=== PATIENT | female | born 1970 | race Caucasian/White ===

== ENCOUNTER → 2023-11-07 06:29 | Day surgery (SDC) | payer BC, SELFPAY | LOC: GI 06:29 | PROVIDERS: ATTENDING PHYSICIAN Internal Medicine; FAMILY PHYSICIAN Family Medicine | DX: Z12.11 Encounter for screening for malignant neoplasm of colon (principal); D12.5 Benign neoplasm of sigmoid colon; K63.5 Polyp of colon | CPT/HCPCS: 45385; 45380; 88305 ==

== ENCOUNTER → 2023-12-01 08:05 | Outpatient (REF) | payer BC, SELFPAY | LOC: RAD 08:05 | PROVIDERS: ATTENDING PHYSICIAN Specialist; FAMILY PHYSICIAN Family Medicine | DX: M16.11 Unilateral primary osteoarthritis, right hip (principal) | CPT/HCPCS: 73502 ==

== ENCOUNTER → 2024-09-27 19:10 | Outpatient (REF) | payer BC, SELFPAY | LOC: WDC 19:10 | PROVIDERS: ATTENDING PHYSICIAN Family Medicine | DX: Z12.31 Encounter for screening mammogram for malignant neoplasm of breast (principal) | CPT/HCPCS: 77063; 77067 ==

== ENCOUNTER 2025-07-12 09:23 | Emergency (ER) | payer BC, SELFPAY ==
[2025-07-12 09:27] VITALS: BP 186/101
--- NOTE | 2025-07-12 11:28 | ED.GENMED ---
History of Present Illness
<Jannette Ibarra MD, Resident - Last Filed: 07/12/25 15:04>
General
Chief Complaint: Fall
Source: patient and family
Time Seen by Provider: 07/12/25 10:34
History of Present Illness
History of Present Illness:
Patient is a 55-year-old female, with past medical history of cervical stenosis, insomnia who is here for evaluation after a fall.
She was [place] dogs [place] the railroad tracks, when she slipped and fell down hill, she tried to grab a tree branch but she could not maintain balance and ultimately hit a log, causing her head to bump but she did not lose consciousness. She
is not on any blood thinners or any antidiabetic medications. She does not know when were her last tetanus shot. She had pain and limited range of motion of her left shoulder, her left ankle hurts on attempting plantarflexion, she also incurred
injuries to her knees with deep lacerations and has swelling on her forehead. She does report some numbness and tingling down the left arm.
She denies any bleeding through ear nose or throat.
She also needs a work note as well as she is an IMU nurse in [employer]
Past History
<Jannette Ibarra MD, Resident - Last Filed: 07/12/25 15:04>
Past History
ED Past Medical History: Other (History of spinal stenosis)
ED Past Surgical History: Other (Lumbar fusion, C5-C7 disc and fusion, ectopic /lateral salpingectomy, laparoscopic ovarian cyst excision)
Social History
Tobacco: Non-smoker
Alcohol: Occasional
Drug: None
Personal:
Living: with family
Employment: Employed (IMU nurse in [employer])
Review of Systems
<Jannette Ibarra MD, Resident - Last Filed: 07/12/25 15:04>
Review of Systems
All Other Systems: ROS reviewed and negative except as documented in HPI and ROS
Phy Exam
<Jannette Ibarra MD, Resident - Last Filed: 07/12/25 15:04>
General Physical Exam
General Presentation: mild distress (Due to pain)
Cardiovascular Exam
Cardiovascular Exam: regular rate/rhythm, no edema, no gallop, no murmur and normal peripheral pulses
Pulmonary Exam
Pulmonary Exam: lungs clear and no respiratory distress
Gastrointestinal Exam
Gastrointestinal Exam: normal bowel sounds, non tender and soft
Neurological Exam
Neurological Exam: alert, oriented x3, no motor deficits and no sensory deficits
Musculoskeletal Exam
Musculoskeletal Exam: other (Bilateral knee lacerations, limited range of motion of left shoulder due to pain, difficulty in plantarflexion of left ankle due to pain, bump on forehead)
Psychiatric Exam
Psychiatric Exam: normal mood/affect
Course
<Jannette Ibarra MD, Resident - Last Filed: 07/12/25 15:04>
Orders/Labs/Results
Orders:
Orders
07/12/25 09:31
CT Head W/o Iv Contrast Urgent
Comment:
Reason For Exam: +head strike, fall, dizzy
07/12/25 10:58
HYDROmorphone [Dilaudid] 1 mg IV NOW STA
Ketorolac [Toradol] 30 mg IV NOW STA
07/12/25 10:59
CT Cervical Spine W/o Iv Contr Urgent
Comment:
Reason For Exam: fall
Tetanus/Diphth/Acelpertussis [Adacel] 0.5 ml IM .ONCE ONE
Knee, Left 1 or 2 Views [CR Knee - Left 1 Or 2 Views] Urgent
Comment:
Reason For Exam: fall
Knee, Right 1 or 2 Views [CR Knee - Right 1 Or 2 Views] Urgent
Comment:
Reason For Exam: fall
Shoulder, Left, Trauma CR [CR Shoulder, Trauma - Left] Urgent
Comment:
Reason For Exam: fall
07/12/25 11:00
Ankle, left 3 view CR [CR Ankle - Left Min 3 Views ] Urgent
Comment:
Reason For Exam: fall
07/12/25 11:37
Ankle, Right 3 view CR [CR Ankle - Right Min 3 Views *] Urgent
Comment:
Reason For Exam: pain
07/12/25 13:02
Knee Immobilizer Left-Treatmen ONCE
Vital Signs
Initial and Last Documented VS:
Initial Vital Signs
Temp Pulse Resp BP Pulse Ox
98.2 F 69 18 186/101 99
07/12/25 09:27 07/12/25 09:27 07/12/25 09:27 07/12/25 09:27 07/12/25 09:27
Last Documented Vital Signs
Temp Pulse Resp BP Pulse Ox
98.2 F 75 16 170/80 100
07/12/25 09:27 07/12/25 14:37 07/12/25 14:37 07/12/25 14:37 07/12/25 14:37
<Michael Worrell, DO - Last Filed: 07/12/25 11:48>
Orders/Labs/Results
Orders:
Orders
07/12/25 09:31
CT Head W/o Iv Contrast Urgent
Comment:
Reason For Exam: +head strike, fall, dizzy
07/12/25 10:58
HYDROmorphone [Dilaudid] 1 mg IV NOW STA
Ketorolac [Toradol] 30 mg IV NOW STA
07/12/25 10:59
CT Cervical Spine W/o Iv Contr Urgent
Comment:
Reason For Exam: fall
Tetanus/Diphth/Acelpertussis [Adacel] 0.5 ml IM .ONCE ONE
Knee, Left 1 or 2 Views [CR Knee - Left 1 Or 2 Views] Urgent
Comment:
Reason For Exam: fall
Knee, Right 1 or 2 Views [CR Knee - Right 1 Or 2 Views] Urgent
Comment:
Reason For Exam: fall
Shoulder, Left, Trauma CR [CR Shoulder, Trauma - Left] Urgent
Comment:
Reason For Exam: fall
07/12/25 11:00
Ankle, left 3 view CR [CR Ankle - Left Min 3 Views ] Urgent
Comment:
Reason For Exam: fall
07/12/25 11:37
Ankle, Right 3 view CR [CR Ankle - Right Min 3 Views *] Urgent
Comment:
Reason For Exam: pain
07/12/25 13:02
Knee Immobilizer Left-Treatmen ONCE
Vital Signs
Initial and Last Documented VS:
Initial Vital Signs
Temp Pulse Resp BP Pulse Ox
98.2 F 69 18 186/101 99
07/12/25 09:27 07/12/25 09:27 07/12/25 09:27 07/12/25 09:27 07/12/25 09:27
Last Documented Vital Signs
Temp Pulse Resp BP Pulse Ox
98.2 F 75 16 170/80 100
07/12/25 09:27 07/12/25 14:37 07/12/25 14:37 07/12/25 14:37 07/12/25 14:37
<Shiraz Torres PA-C - Last Filed: 07/13/25 17:55>
Orders/Labs/Results
Orders:
Orders
07/12/25 09:31
CT Head W/o Iv Contrast Urgent
Comment:
Reason For Exam: +head strike, fall, dizzy
07/12/25 10:58
HYDROmorphone [Dilaudid] 1 mg IV NOW STA
Ketorolac [Toradol] 30 mg IV NOW STA
07/12/25 10:59
CT Cervical Spine W/o Iv Contr Urgent
Comment:
Reason For Exam: fall
Tetanus/Diphth/Acelpertussis [Adacel] 0.5 ml IM .ONCE ONE
Knee, Left 1 or 2 Views [CR Knee - Left 1 Or 2 Views] Urgent
Comment:
Reason For Exam: fall
Knee, Right 1 or 2 Views [CR Knee - Right 1 Or 2 Views] Urgent
Comment:
Reason For Exam: fall
Shoulder, Left, Trauma CR [CR Shoulder, Trauma - Left] Urgent
Comment:
Reason For Exam: fall
07/12/25 11:00
Ankle, left 3 view CR [CR Ankle - Left Min 3 Views ] Urgent
Comment:
Reason For Exam: fall
07/12/25 11:37
Ankle, Right 3 view CR [CR Ankle - Right Min 3 Views *] Urgent
Comment:
Reason For Exam: pain
07/12/25 13:02
Knee Immobilizer Left-Treatmen ONCE
Vital Signs
Initial and Last Documented VS:
Initial Vital Signs
Temp Pulse Resp BP Pulse Ox
98.2 F 69 18 186/101 99
07/12/25 09:27 07/12/25 09:27 07/12/25 09:27 07/12/25 09:27 07/12/25 09:27
Last Documented Vital Signs
Temp Pulse Resp BP Pulse Ox
98.2 F 75 16 170/80 100
07/12/25 09:27 07/12/25 14:37 07/12/25 14:37 07/12/25 14:37 07/12/25 14:37
Procedures
<Jannette Ibarra MD, Resident - Last Filed: 07/12/25 15:04>
Laceration Closure
Right Knee:
Description of Wound Edges: ragged
Preparation: cleaned with saline
Anesthesia: 1% Lidocaine with epi
Revision/Debridement: minor revision
Type of Closure: single layer closure
Skin Closure Material: 4-0 prolene
Number of sutures: 8
<Shiraz Torres PA-C - Last Filed: 07/13/25 17:55>
Laceration Closure
Left Knee:
Status of Wound: clean
Size of Wound in cm: 3
Description of Wound Edges: ragged
Preparation: cleaned with saline
Anesthesia: 1% Lidocaine with epi
Revision/Debridement: minor revision
Type of Closure: layered closure
Skin Closure Material: 4-0 nylon and 4-0 vicryl (5)
<Jannette Ibarra MD, Resident - Last Filed: 07/12/25 15:04>
MDM/Problems Addressed
Differential Diagnosis Includes:
Head injury
Concussion
Cervical spine fracture
Left shoulder fracture
MDM/Problems Addressed:
CT scan of head done-no intracranial bleed/hematoma
CT of cervical spine done-no acute dislocations/fracture
Ankle x-ray-on the left no fracture/dislocation, mild soft tissue swelling with minimal inferior calcaneal spur
On the right: No fractures or dislocations, mild soft tissue swelling
Unremarkable bilateral knees on x-rays
Unremarkable left shoulder x-ray
Pain relief provided with Toradol and hydromorphone
Tetanus shot updated
Knee immobilizer in place
<Jannette Ibarra MD, Resident - Last Filed: 07/12/25 15:04>
*Pulse Oximetry
SaO2: 99
Oxygen Mode of Delivery: Room air
Patient hypoxic: no
*Critical Care Note
Total Time (30-74mins, 75-104mins- exclusive of procedures): Not Applicable
ED Attending Note
<Jannette Ibarra MD, Resident - Last Filed: 07/12/25 15:04>
-
Portions of this chart may have been created with voice recognition software.� Occasional wrong word or��sound alike� substitutions may have occurred due to the inherent limitations of voice recognition software.
<Michael Worrell, DO - Last Filed: 07/12/25 11:48>
ED Attending Note
Patient seen and examined by attending physician: Yes
I performed a history and physical exam of patient and discussed management with resident, I reviewed resident's note and agree with documented findings and plan of care.: Yes
ED Attending Note:
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
shortness of breath no abdominal pain she has stellate abrasions to bilateral knees, bilateral ankle pain
Discharge Plan
Departure
Patient Disposition: Home (Routine Discharge)
Date of Disposition: 07/12/25
Time of Disposition: 13:55
Patient with high blood pressure during this ER visit?: No
Condition: Good
Covid-19: Not Applicable
Discharge Problem:
Fall, Laceration
Instructions: Wound Care (DC), Head Injury in Adults (DC), Contusion (DC), Laceration Repair With Stitches (DC), Preventing falls in adults, Skin Abrasions (DC)
Prescriptions:
New
oxycodone-acetaminophen [Percocet] 5-325 mg tablet
1 tab PO Q6HPRN PRN (Reason: pain) Qty: 14 0RF
ibuprofen 600 mg tablet
600 mg PO Q8H PRN (Reason: Pain) Qty: 20 0RF
cephalexin 500 mg capsule
500 mg PO Q8H 7 Days Qty: 21 0RF
No Action
tramadol 50 MG tablet
50 mg PO Q6HPRN PRN (Reason: pain) Qty: 40 0RF
multivitamin Tablet
1 tab PO DAILY
trazodone 50 mg Tablet
50 mg PO HS
norethindrone acetate 5 mg Tablet
5 mg PO DAILY
Patient Comments:
ONCE MONTHLY FOR 14 DAYS
topiramate [Topamax] 50 mg Tablet
50 mg PO HS
melatonin 10 mg Tablet
10 mg PO HS
gabapentin 600 mg Tablet Extended Release 24 Hr
600 mg PO DAILY
acetaminophen [acetaminophen] 325 mg tablet
650 mg PO Q4HPRN PRN (Reason: mild pain) Qty: 1 0RF
ibuprofen 200 mg tablet
400 - 600 mg PO Q6HPRN PRN (Reason: moderate pain) Qty: 1 0RF
Referrals:
Chidi Yin DO [Family Provider]
Félix Menchaca MD [Active, Orthopedics]
Stand Alone Forms: Return to Work
Interventions
Interventions:
*Risk Screen - Suicide Last Done: 07/12/25 09:27
*General Assessment Last Done: 07/12/25 10:29
*Neglect/Abuse Screening Last Done: 07/12/25 10:29
*ED COVID-19 Vaccine History Last Done: 07/12/25 10:29
*ED Influenza Vaccine History Last Done: 07/12/25 09:27
[facility] Fall Risk Assessment Tool Last Done: 07/12/25 10:29
*Nursing Disposition Last Done: 07/12/25 14:38
ED-Musculoskeletal Assessment Last Done: 07/12/25 10:35
ED- Neurological Assessment Last Done: 07/12/25 10:29
ED-Skin Assessment Last Done: 07/12/25 10:29
Discharge Date and Time
Discharge Date/Time: 07/12/25 14:39
Print Language: UKRAINIAN
[2025-07-12] MEDS: DILAUDID 1 MG IV (11:32)
[2025-07-12] MEDS: TORADOL 30 MG IV (11:32)
[2025-07-12] MEDS: ADACEL 0.5 ML IM (11:33)
[2025-07-12 11:40] VITALS: BP 171/78
[2025-07-12 11:51] VITALS: BP 171/78
[2025-07-12 14:37] VITALS: BP 170/80
== END 2025-07-12 14:39 | disposition home or self-care (01) ==
LOC: EMR 09:23
PROVIDERS: EMERGENCY PHYSICIAN Emergency Medicine; FAMILY PHYSICIAN Family Medicine
DX: S01.81XA Laceration without foreign body of other part of head, initial encounter (principal); S81.012A Laceration without foreign body, left knee, initial encounter; S81.011A Laceration without foreign body, right knee, initial encounter; M25.512 Pain in left shoulder; W01.0XXA Fall on same level from slipping, tripping and stumbling without subsequent striking against object, initial encounter; Z98.1 Arthrodesis status; Z23 Encounter for immunization
CPT/HCPCS: 12032; 12001; 96374; 96375; 90471; 99284; 70450; 72125; 73030; 73560; 73610; 90715